=== PATIENT | female | born 1995 | race Caucasian/White ===

== ENCOUNTER 2019-04-11 14:22 | Emergency (ER) | payer SELFPAY ==
[~2019-04-11] VITALS: Ht 165.1 cm; Wt 73.0 kg
[2019-04-11 14:31] VITALS: BP 127/83
== END 2019-04-11 17:20 | disposition left against medical advice (07) ==
LOC: ER 14:22
DX: Z53.21 Procedure and treatment not carried out due to patient leaving prior to being seen by health care provider (principal); R07.89 Other chest pain
CPT/HCPCS: 93005